=== PATIENT | female | born 1975 | race Caucasian/White ===

== ENCOUNTER 2019-02-21 15:48 | Emergency (ER) | payer MEDICAID ==
[~2019-02-21] VITALS: Ht 162.6 cm; Wt 74.8 kg
[2019-02-21] MEDS ORDERED: ACETAMINOPHEN 325 MG TAB PO ONE (16:00)
[2019-02-21] MEDS ORDERED: IBUPROFEN 800 MG TAB PO ONE (16:00)
[2019-02-21] MEDS ORDERED: traMADol HCL 50 MG TAB PO ONE (17:00)
[2019-02-21] MEDS ORDERED: TETANUS-DIPTH-ACEL PERTUSSIS 0.5ML SYRG IM ONE (17:15)
== END 2019-02-21 17:25 | disposition home or self-care (01) ==
LOC: ER 15:48
DX: S51.852A Open bite of left forearm, initial encounter (principal); W54.0XXA Bitten by dog, initial encounter; Y93.89 Activity, other specified; Y92.89 Other specified places as the place of occurrence of the external cause; Y99.8 Other external cause status
CPT/HCPCS: 73090; 90471; 90715

== ENCOUNTER 2021-09-08 22:25 | Emergency (ER) | payer MEDICAID ==
[~2021-09-08] VITALS: Ht 162.6 cm; Wt 68.0 kg
[2021-09-08 22:25] VITALS: BP 147/75
== END 2021-09-09 01:35 | disposition left against medical advice (07) ==
LOC: EDBD 22:25 → ER 22:25
DX: R06.02 Shortness of breath (principal); Z53.21 Procedure and treatment not carried out due to patient leaving prior to being seen by health care provider